=== PATIENT | female | born 1960 | race Caucasian/White ===

== ENCOUNTER 2016-06-02 | Outpatient (CLI) | payer OTHER | END 2016-06-02 12:01 | disposition home or self-care (01) ==

== ENCOUNTER 2016-08-25 14:24 | Outpatient (CLI) | payer OTHER | END 2016-08-25 14:25 | disposition home or self-care (01) | DX: Z12.31 Encounter for screening mammogram for malignant neoplasm of breast (principal); Z80.3 Family history of malignant neoplasm of breast ==

== ENCOUNTER 2017-08-21 15:07 | Outpatient (CLI) | payer OTHER ==
--- NOTE | 2017-08-22 10:30 | Mammography Report ---
DIGITAL SCREENING MAMMOGRAM: 08/21/2017 CLINICAL INDICATION: A 57-year-old with a family history of breast cancer, history of benign biopsy for screening. COMPARISON: 08/2016, 08/2015, 08/2014, 08/2013, 08/2012, 06/2011, 06/2010, 06/2009. TECHNIQUE: Routine CC and MLO projections were obtained of the breasts as well as bilateral laterally exaggerated craniocaudal views. FINDINGS: The breasts demonstrate heterogeneously dense fibroglandular parenchyma bilaterally. Coarse, typically benign calcifications are present. Postbiopsy changes in the left upper outer posterior breast are stable. No suspicious masses, clustered microcalcifications, or regions of architectural distortion are identified. IMPRESSION: BENIGN FINDINGS. RECOMMENDATION: Routine annual screening unless otherwise clinically indicated. BIRADS CATEGORY 2 - BENIGN FINDINGS. STANDARD QUALIFYING STATEMENTS: 1. This examination was reviewed with the aid of Computer-Aided Detection (CAD). 2. A negative or benign imaging report should not delay biopsy if clinically suspicious findings are present. Consider surgical consultation if warranted. More than 5% of cancers are not identified by imaging. 3. Dense breasts may obscure an underlying neoplasm. TD: 08/22/2017 10:28
== END 2017-08-21 15:08 | disposition home or self-care (01) ==
LOC: DI 15:07
PROVIDERS: ATTEND Physician Assistant
DX: Z12.31 Encounter for screening mammogram for malignant neoplasm of breast (principal); Z80.3 Family history of malignant neoplasm of breast
CPT/HCPCS: 77067

== ENCOUNTER 2018-01-03 12:01 | Outpatient (CLI) | payer OTHER ==
--- NOTE | 2018-01-03 14:53 | XRAY Report ---
Procedure Date: 01/03/2018 Accession Number: [id number] / [id number] Procedure: XR - Ankle 3 View RT CPT Code: FULL RESULT: EXAM: RIGHT ANKLE RADIOGRAPHY EXAM DATE: 01/03/2018 12:30 PM. CLINICAL HISTORY: RIGHT ANKLE INSTABILITY. COMPARISON: None. TECHNIQUE: 3 views. FINDINGS: Bones: Prominent osteophyte-like projection from the tip of the lateral malleolus. No fractures or bone lesions. Joints: No effusion. No subluxations. The ankle mortise is normally aligned. Soft Tissues: Minimal lateral soft tissue swelling. IMPRESSION: Prominent osteophyte projection arising from the tip of the lateral malleolus associated with mild soft tissue swelling. Otherwise negative right radiography. RADIA
== END 2018-01-03 12:02 | disposition home or self-care (01) ==
LOC: DI 12:01
PROVIDERS: ATTEND Nurse Practitioner Family
DX: M25.571 Pain in right ankle and joints of right foot (principal); M25.371 Other instability, right ankle; M25.771 Osteophyte, right ankle

== ENCOUNTER 2018-04-16 14:00 | Emergency (ER) | payer OTHER ==
[2018-04-16] MEDS ORDERED: SODIUM CHLORIDE 0.9% 1,000 ML IV ONE (14:33)
[2018-04-16] MEDS ORDERED: KETOROLAC 15 MG/ML VIAL IVP STA (14:33)
[2018-04-16 14:54] LABS: BILIRUBIN,URINE NEGATIVE (NEGATIVE); GLUCOSE, URINE (UA) NEGATIVE (NEGATIVE); KETONES,URINE (UA) TRACE mg/dL (NEGATIVE); LEUKOCYTE ESTERASE, URINE SMALL (NEGATIVE); NITRITE,URINE NEGATIVE (NEGATIVE); OCCULT BLOOD,URINE NEGATIVE (NEGATIVE); PROTEIN,URINE NEGATIVE (NEGATIVE); UROBILINOGEN,URINE 0.2 (NORMAL) E.U./dL (NORMAL)
[2018-04-16 14:55] LABS: CLARITY,URINE HAZY (CLEAR)
[2018-04-16 15:08] LABS: RBC,URINE 0-5 /HPF (0-5)
[2018-04-16 15:09] LABS: AMORPHOUS SEDIMENT,UR Few /LPF; BACTERIA,URINE Few /HPF (None Seen); SQUAMOUS EPITHELIAL CELL,UR FEW Squamous (<= Few)
[2018-04-16 15:14] LABS: BASOPHILS % (AUTO) 0.2 %; EOSINOPHILS # (AUTO) 0.5 10^3/uL (0.0-0.7); EOSINOPHILS % (AUTO) 10.3 %; HGB - HEMOGLOBIN 13.2 g/dL (12.0-16.0); LYMPHOCYTES # (AUTO) 0.2 10^3/uL (1.5-3.5); LYMPHOCYTES % (AUTO) 4.1 %; MEAN CORPUSCULAR HEMOGLOBIN 30.4 pg (27.0-31.0); MEAN CORPUSCULAR HGB CONC 34.2 g/dL (32.0-36.0); MEAN PLATELET VOLUME 9.8 fL (7.9-10.8); MONOCYTES # (AUTO) 0.4 10^3/uL (0.0-1.0); MONOCYTES % (AUTO) 8.3 %; NEUTROPHILS # (AUTO) 3.8 10^3/uL (1.5-6.6); NEUTROPHILS % (AUTO) 77.1 %; PLT - PLATELET COUNT 130 10^3/uL (130-450); RED BLOOD COUNT 4.35 10^6/uL (4.20-5.40); RED CELL DISTRIBUTION WIDTH 13.2 % (12.0-15.0)
[2018-04-16 15:26] LABS: ALBUMIN 3.9 g/dL (3.2-5.5); ALBUMIN/GLOBULIN RATIO 1.3 (1.0-2.2); BILIRUBIN,TOTAL 0.6 mg/dL (0.2-1.0); CALCIUM 8.5 mg/dL (8.5-10.3); CREATININE 0.7 mg/dL (0.4-1.0); TOTAL PROTEIN 6.9 g/dL (6.7-8.2)
[2018-04-16] MEDS ORDERED: cefTRIAXone 1 GM in SODIUM CHLORIDE 0.9% MINIBAG 100 ML IV STA (16:21)
--- NOTE | 2018-04-16 16:58 | ED Physician Documentation ---
History of Present Illness - Stated complaint Stated Complaint: CHILLS/LOW BACK PX - Chief complaint Chief Complaint: General - Additonal information Additional information: 58-year-old female presents the emergency department for evaluation of chills which started last night and ongoing dysuria with pain through her lower back. The patient's symptoms started yesterday evening and have continued. The patient was recently started on Macrobid for urinary tract infection. The patient has had ongoing dysuria. No reports of fever, focal abdominal pain, flank pain or relieving factors. Symptoms are described as moderate. No other associated symptoms. Review of Systems Constitutional: reports: Chills, Myalgias, Fatigue. denies: Fever Eyes: denies: Discharge Ears: denies: Ear pain Nose: denies: Congestion Throat: denies: Sore throat Cardiac: denies: Chest pain / pressure Respiratory: denies: Cough GI: denies: Abdominal Pain : reports: Dysuria. 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 : None HEENT: None Psych: Anxiety Musculoskeletal: None Derm: None - Past Surgical History /GAS METER REPAIRER: Dilation and currettage HEENT: Tonsil/Adenoidectomy - Present Medications Home Medications: Ambulatory Orders Medication Instructions Recorded Confirmed Cephalexin [Keflex] 500 mg PO BID #14 capsule 04/16/18 - Allergies Allergies/Adverse Reactions: Allergies Allergy/AdvReac Type Severity Reaction Status Date / Time No Known Drug Allergies Allergy Verified 04/16/18 14:10 - Social History Does the pt smoke?: No Smoking Status: Never smoker Does the pt drink ETOH?: Yes ETOH Use: Wine, Beer, Liquor Does the pt have substance abuse?: No - Immunizations Immunizations are current?: Yes - POLST Patient has POLST: No PD ED PE NORMAL - General General: Alert and oriented X 3, No acute distress - HEENT HEENT: Atraumatic, PERRL, EOMI, Ears normal - Neck Neck: Supple, no meningeal sign - Cardiac Cardiac: RRR, Strong equal pulses - Respiratory Respiratory: No respiratory distress, Clear bilaterally - Abdomen Abdomen: Soft, Non tender, Non distended - Back Back: No CVA TTP - Derm Derm: Normal color - Extremities Extremities: No deformity, Normal ROM s pain, No edema - Neuro Neuro: Alert and oriented X 3, Normal speech - Psych Psych: Normal mood Results - Vitals Vitals: Vital Signs - 24 hr 04/16/18 14:07 Temperature 36.7 C Heart Rate 97 Respiratory 16 Rate Blood Pressure 133/67 H O2 Saturation 100 - Labs Labs: Laboratory Tests 04/16/18 04/16/18 04/16/18 14:32 15:02 15:02 WBC 5.0 RBC 4.35 Hgb 13.2 Hct 38.7 MCV 89.0 MCH 30.4 MCHC 34.2 RDW 13.2 Plt Count 130 MPV 9.8 Neut # (Auto) 3.8 Lymph # (Auto) 0.2 L [place] # (Auto) 0.4 Eos # (Auto) 0.5 Baso # (Auto) 0.0 Absolute Nucleated RBC 0.00 Nucleated RBC % 0.0 Sodium Potassium Chloride Carbon Dioxide Anion Gap BUN Creatinine Estimated GFR (MDRD) Glucose Lactic Acid 1.5 Calcium Total Bilirubin AST ALT Alkaline Phosphatase Total Protein Albumin Globulin Albumin/Globulin Ratio Lipase Urine Color YELLOW Urine Clarity HAZY Urine pH 6.0 Ur Specific [place] >=1.030 H Urine Protein NEGATIVE Urine Glucose (UA) NEGATIVE Urine Ketones TRACE Urine Occult Blood NEGATIVE Urine Nitrite NEGATIVE Urine Bilirubin NEGATIVE Urine Urobilinogen 0.2 (NORMAL) Ur Leukocyte Esterase SMALL H Urine RBC 0-5 Urine WBC 4-5 Ur Squamous Epith Cells FEW Squamous Amorphous Sediment Few Urine Bacteria Few Ur Microscopic Review INDICATED Urine Culture Comments INDICATED 04/16/18 15:02 WBC RBC Hgb Hct MCV MCH MCHC RDW Plt Count MPV Neut # (Auto) Lymph # (Auto) [place] # (Auto) Eos # (Auto) Baso # (Auto) Absolute Nucleated RBC Nucleated RBC % Sodium 134 L Potassium 3.5 Chloride 104 Carbon Dioxide 23 Anion Gap 7.0 BUN 17 Creatinine 0.7 Estimated GFR (MDRD) 86 L Glucose 127 H Lactic Acid Calcium 8.5 Total Bilirubin 0.6 AST 31 ALT 24 Alkaline Phosphatase 76 Total Protein 6.9 Albumin 3.9 Globulin 3.0 Albumin/Globulin Ratio 1.3 Lipase 29 Urine Color Urine Clarity Urine pH Ur Specific [place] Urine Protein Urine Glucose (UA) Urine Ketones Urine Occult Blood Urine Nitrite Urine Bilirubin Urine Urobilinogen Ur Leukocyte Esterase Urine RBC Urine WBC Ur Squamous Epith Cells Amorphous Sediment Urine Bacteria Ur Microscopic Review Urine Culture Comments PD MEDICAL DECISION MAKING - ED course ED course: The patient's symptoms most likely are secondary to a urinary tract infection which did not respond to Macrobid. The patient has no clinical evidence of pyelonephritis at this time and there is no evidence of sepsis. Presently, the patient appears appropriate for discharge and ongoing outpatient management. The patient had much improvement in the emergency department. The patient's antibiotics will be changed to Keflex. A culture will be sent. I discussed warning signs and recommended returning to the emergency department for any worsening or any concerns. Departure - Departure Disposition: Home, Self Care Clinical Impression: Chills (without fever) Acute cystitis Qualifiers: Hematuria presence: without hematuria Qualified Code(s): N30.00 - Acute cystitis without hematuria Condition: Good Instructions: ED UTI Cystitis Female Follow-Up: Dawn Flower PA [Primary Care Provider] - Within 1 week Prescriptions: Cephalexin [Keflex] 500 mg PO BID #14 capsule Comments: Please return to the emergency department for worsening symptoms or any concerns.
[2018-04-16 17:37] VITALS: BP 111/69
== END 2018-04-16 17:41 | disposition home or self-care (01) ==
LOC: ED 14:00
DX: N30.00 Acute cystitis without hematuria (principal); R68.83 Chills (without fever)
CPT/HCPCS: 36415; 80053; 81001; 81003; 83605; 83690; 85025; 87040; 87086; 96361; 96365; 96375; 99283

== ENCOUNTER 2018-09-19 16:27 | Outpatient (CLI) | payer OTHER ==
--- NOTE | 2018-09-20 09:04 | Mammography Report ---
Reason: SCREENING MAMMO Procedure Date: 09/19/2018 Accession Number: [id number] / [id number] Procedure: ROLY - Screening Mammo w/Shaun CPT Code: FULL RESULT: EXAM: Screening Mammo w/Shaun DATE: 09/19/2018 5:12 PM CLINICAL HISTORY: Screening encounter. Family history of breast cancer in the mother at the age of 75 or 76. History of left breast core biopsy in 2007, negative pathology. TECHNIQUE: (B) - Bilateral CC and MLO views were obtained. COMPARISON: 08/21/2017 through 09/04/2014. PARENCHYMAL PATTERN: (D) - The breast(s) demonstrate(s) heterogeneously dense fibroglandular parenchyma. FINDINGS: A biopsy clip is seen in the left breast. There are coarse typically benign calcifications. There are no suspicious masses, calcifications, or areas of distortion. IMPRESSION: Benign findings. BI-RADS category 2. RECOMMENDATION: (ANNUAL) - Recommend routine annual screening mammography. BI-RADS CATEGORY: (2) - Benign Findings. STANDARD QUALIFYING STATEMENTS: 1. This examination was not reviewed with the aid of Computer-Aided Detection (CAD). 2. A negative or benign imaging report should not preclude biopsy if clinically suspicious findings are present. 3. Dense breasts may obscure an underlying neoplasm. 4. This examination was reviewed with the aid of 3D breast imaging (tomosynthesis).
== END 2018-09-19 16:28 | disposition home or self-care (01) ==
LOC: DI 16:27
PROVIDERS: ATTEND Physician Assistant
DX: Z12.31 Encounter for screening mammogram for malignant neoplasm of breast (principal); Z80.3 Family history of malignant neoplasm of breast
CPT/HCPCS: 77063; 77067

== ENCOUNTER 2019-06-11 16:10 | Outpatient (CLI) | payer OTHER ==
--- NOTE | 2019-06-13 16:29 | XRAY Report ---
Reason: LOW BACK PAIN Procedure Date: 06/11/2019 Accession Number: [id number] / [id number] Procedure: XR - Lumbar Spine Complete CPT Code: Final Report FULL RESULT: EXAM: LUMBOSACRAL SPINE RADIOGRAPHY EXAM DATE: 06/11/2019 04:29 PM. CLINICAL HISTORY: Low back pain. COMPARISONS: None. TECHNIQUE: 5 views. FINDINGS: Alignment: There are apparent 5 degrees of thoracolumbar dextroscoliosis centered about T12, possibly due to partial loss of height of T12, not well-seen on lateral radiograph due to technique. Bones: Five upn-bss-peepmpy lumbar vertebral bodies are present. No fractures or bone lesions as visualized, limited at the lower thoracic spine as described above. Disks: Normal. Disk heights are maintained. Facets: There are advanced facet degenerative changes at L5. Sacroiliac Joints: Unremarkable. Soft Tissues: Normal. The visualized bowel gas pattern is normal. IMPRESSION: Question abnormality of the T12 vertebral body with scoliosis. There is focal tenderness in this region, recommend additional imaging by cross-sectional modality, CT versus MRI. Advanced facet arthropathy at L5. RADIA
== END 2019-06-11 16:11 | disposition home or self-care (01) ==
LOC: DI 16:10
PROVIDERS: ATTEND Physician Assistant
DX: M47.816 Spondylosis without myelopathy or radiculopathy, lumbar region (principal)
CPT/HCPCS: 72110

== ENCOUNTER 2020-01-02 13:03 | Outpatient (CLI) | payer OTHER ==
--- NOTE | 2020-01-03 08:09 | Mammography Report ---
BILATERAL DIGITAL SCREENING MAMMOGRAM 3D/2D: 01/02/2020 CLINICAL: Routine screening. Comparison is made to exams dated: 09/19/2018 mammogram, 08/21/2017 mammogram, 08/25/2016 mammogram, 09/01 mammogram, 09/04/2014 mammogram, and 08/27/2013 mammogram - [facility]. The ti ssue of both breasts is heterogeneously dense. This may lower the sensitivity of mammography. There is a biopsy clip in the left breast. No significant masses, calcifications, or other findings are seen in either breast. There has been no significant interval change. IMPRESSION: NEGATIVE There is no mammographic evidence of malignancy. A 1 year screening mammogram is recommended. This exam was interpreted at Station ID: [id number]. NOTE: For mammograms, a report in lay terms will be sent to the patient. Approximately 15% of breast malignancies will not be visualized mammographically. In the management of a palpable breast mass, a negative mammogram must not discourage biopsy of a clinically suspicious lesion. Electronically Signed By: Young charles/сергей:01/02/2020 16:35:53 ACR BI-RADS Category 1: Negative 3341F PARENCHYMAL PATTERN: (D) - The breast(s) demonstrate(s) heterogeneously dense fibroglandular chandana mccloud. BI-RADS CATEGORY: (1) - 1 RECOMMENDATION: (ANNUAL) - Recommend routine annual screening mammography. 20210102 1 year screening LATERALITY: (B)
== END 2020-01-02 13:04 | disposition home or self-care (01) ==
LOC: DI 13:03
PROVIDERS: ATTEND Registered Nurse
DX: Z12.31 Encounter for screening mammogram for malignant neoplasm of breast (principal)
CPT/HCPCS: 77063; 77067

== ENCOUNTER 2020-12-14 08:55 | Outpatient (CLI) | payer OTHER ==
--- NOTE | 2020-12-14 14:22 | Mammography Report ---
BILATERAL DIGITAL SCREENING MAMMOGRAM 3D/2D: 12/14/2020 CLINICAL: Routine screening. Comparison is made to exams dated: 01/02/2020 mammogram, 09/19/2018 mammogram, 08/21/2017 mammogram, 08/25 mammogram, 09/02/2015 mammogram, and 09/04/2014 mammogram - [facility]. The ti ssue of both breasts is heterogeneously dense. This may lower the sensitivity of mammography. There is a biopsy clip in the left breast. No significant masses, calcifications, or other findings are seen in either breast. There has been no significant interval change. IMPRESSION: NEGATIVE There is no mammographic evidence of malignancy. A 1 year screening mammogram is recommended. This exam was interpreted at Station ID: [id number]. NOTE: For mammograms, a report in lay terms will be sent to the patient. Approximately 15% of breast malignancies will not be visualized mammographically. In the management of a palpable breast mass, a negative mammogram must not discourage biopsy of a clinically suspicious lesion. Electronically Signed By: Young charles/сергей:12/14/2020 09:40:11 ACR BI-RADS Category 1: Negative 3341F PARENCHYMAL PATTERN: (D) - The breast(s) demonstrate(s) heterogeneously dense fibroglandular chandana mccloud. BI-RADS CATEGORY: (1) - 1 RECOMMENDATION: (ANNUAL) - Recommend routine annual screening mammography. 20211215 1 year screening LATERALITY: (B)
== END 2020-12-14 08:56 | disposition home or self-care (01) ==
LOC: DI 08:55
DX: Z12.31 Encounter for screening mammogram for malignant neoplasm of breast (principal)

== ENCOUNTER 2021-08-05 15:42 | Outpatient (CLI) | payer OTHER ==
[2021-08-05 16:41] VITALS: BP 155/95
--- NOTE | 2021-08-05 16:41 | SLEEP CARE CONSULTATION ---
Information from patient questionnaire entered by Blane Melgar MA. I have reviewed and concur with the information entered by Blane Melgar MA. This document represents the service I personally performed and the decisions made by , Geri Pace ARNP. History of Present Illness Service Date and Time: 08/05/2021 1542 Reason for Visit: New patient (ONSET [address], ON CPAP), Previously diagnosed sleep apnea, sleep apnea on CPAP therapy Chief Complaint: reports: Insomnia, Unrefreshed sleep, Snoring, Observed pauses in breathing, Fatigue Date of Onset: 20 YEARS Usual bedtime: 930-1030 PM Time it takes to fall asleep: 10 - 20 MINUTES Snores at night: Yes Observed to quit breathing while asleep: Yes Sleeps alone due to snoring: No Number of times waking at night: 1-2 Reasons for waking at night: reports: Snoring, Gasping for air, Bathroom Toss, Turn, or Twitch while sleeping: Yes Recalls having dreams: Yes Usually gets out of bed at: 0700 Feels refreshed in the morning: No Morning headache: Yes Sleepy or fatigued during the day: Yes Ever fallen asleep while driving: No Takes day naps: No Dreams during day naps: No Prior sleep studies: Yes Year and Where: 2016 [facility] Type of Sleep Study: Home sleep study Additional HPI information: PEPE NICOLE was previously diagnosed to have mild, AHI 5.5, obstructive sleep apnea-hypopnea syndrome and comes in today to establish care for CPAP therapy. - Parasomnia Symptoms Ever been unable to move upon waking from sleep: Yes Walks in sleep: No Talks in sleep: Yes Ever acted out dreams in sleep: No Ever felt weak in the knees when startled or emotional: No Bothered by creepy, crawly, restless sensations in legs: No Problems with memory or concentration: Yes CPAP Compliance Data Compliance data discussion: Patient has not been using a CPAP since 2019. She stopped using it around the time Covid started. She was having problems with sinuses and allergies when using her CPAP. She also had insurance issues and was not able to afford supplies. She then heard about the recall and has not continued using her CPAP since. She has received a new Dreamstation 2 but has not even unpacked to try using it. She has used a AirFit N30i mask in the past. She last received supplies through [employer]. Her insurance status is changing in October. Subjective Missed days of use due to: reports: illness, other (recall) Patient concerns: reports: nasal congestion. denies: aerophagia, mask discomfort, air blowing in eyes, mask leak noise, condensation in mask/hose, dry mouth, nose, throat, epistaxis Observed to snore while using device: No Current pressure setting perceived as: comfortable On therapy, patient: reports: other (not sure how much benefit she received due to issues). denies: drowsiness while driving Initial [place] Sleepiness Scale score: 10 (07/2021) Past Medical History Past Medical History: reports: Claustrophobia, Arthritis, Arrythmia (menopause related? - racing heart), Anxiety, Depression Social History The patient's occupation is a [employer]. Patient is and lives in [place]. Have you smoked in the past 12 months: No Cigarettes per day (20/pack): 22 Years of smokin Quit date: 40 YEARS Smoking Pack Years: 4.4 Alcohol use: Yes Alcohol amount and frequency: 1 X DAILY, varies Caffeine use: Yes Caffeine amount and frequency: 2 X DAILY Family History Family history of sleep disordered breathing: Yes Family Hx Sleep Apnea: Mother: Snoring, Father: Snoring, Sibling: Snoring Allergies and Home Medications Known drug allergies: No Drug allergies reviewed: Yes Home medication list reviewed: Yes Allergy and home medication list: Allergies No Known Drug Allergies Allergy (Verified 04/16/18 14:10) Medications: Atorvastatin Estradiol Cequa, eye drop Alclometasone dipropionate ointment, prn Sumatriptan, prn Advil, prn Claritan, prn Dramamine, prn Airborne Milk Thistle Camilo L-Glutamine L-Tyrosine Ashwaganda Calcium Vitamin D3 Review of Systems Cardiovascular: reports: other (low blood pressure) Respiratory: reports: shortness of breath Neurological: reports: headaches Psychiatric: reports: anxiety, depression Ear/Nose/Throat: reports: tonsillectomy, wisdom teeth removed Endocrine: reports: sluggishness, too hot or cold Musculoskeletal: reports: joint pain, neck pain, back pain, joint swelling, muscle pain or cramping, mobility problems Immunologic: reports: sneezing, rash, itching, allergies to food or environment (pollens (trees and grass), Chemical scents, Mold/mildew) Physical Exam Vital signs obtained and entered by: FIDE BURCIAGA Blood Pressure: 155/95 (LEFT, PULSE 67, RESP 14, ) Cuff size: wrist Heart Rate: 67 O2 Saturation: 98 (PAPER) Height: 5 ft 6 in Weight: 165 lb (CLOTHES) Body Mass Index: 26.6 BMI Classification: Overweight Neck circumference: 13 (INCHES) Heart: regular rate and rhythm Lungs: clear bilaterally Impression and Plan 1. Suspected Obstructive Sleep Apnea-Hypopnea Syndrome, as previously diagnosed and as suggested by a history of irregular snoring, observed cessation of breath while asleep, morning headache, frequent awakening during the night, unrefreshed sleep, and cognitive impairment. I recommend proceeding to polysomnography to confirm the diagnosis and to assess severity. If the patient has significant sleep disordered breathing, a manual CPAP titration study will also be performed to find the optimal treatment pressure. I informed the patient of what the sleep studies involve and after some discussion, obtained agreement to proceed. The pathophysiology of obstructive sleep apnea-hypopnea syndrome was discussed with the patient and health risks of cardiovascular and cerebrovascular disease if not treated. Risks of drowsy driving discussed in detail and patient advised to avoid long distance driving and to order puller at the first sign of drowsiness. Patient agreed to plan. * Schedule polysomnography +- manual CPAP titration study and return in 1-2 weeks after the study to discuss results. * Avoid long distance driving or driving when feeling sleepy. * Avoid alcohol, sedative and muscle relaxant around bedtime. * Attempt to lose weight. * Review instructions provided by trained office staff on how to prepare for the sleep study. * Return for follow-up after sleep study completed. Counseling Topics: Weight control Visit Type: In Office Time Spent with Patient (minutes): 32 Provider Statement: I spent 100% of the Face to Face Visit with the patient with greater than 50% spent counseling the patient and coordination of care.
== END 2021-08-05 15:43 | disposition home or self-care (01) ==
LOC: SC 15:42
PROVIDERS: ATTEND Nurse Practitioner Family
DX: G47.33 Obstructive sleep apnea (adult) (pediatric) (principal); E66.3 Overweight; Z68.26 Body mass index [BMI] 26.0-26.9, adult; Z87.891 Personal history of nicotine dependence
CPT/HCPCS: 99203; 99212

== ENCOUNTER 2021-08-17 15:02 | Outpatient (CLI) | payer OTHER | END 2021-08-17 15:03 | disposition home or self-care (01) | LOC: SC 15:02 | PROVIDERS: ATTEND Nurse Practitioner Family | DX: G47.33 Obstructive sleep apnea (adult) (pediatric) (principal) | CPT/HCPCS: 95806 ==

== ENCOUNTER 2021-09-03 10:37 | Outpatient (CLI) | payer OTHER ==
[2021-09-03 11:26] VITALS: BP 126/71
--- NOTE | 2021-09-03 11:26 | SLEEP CARE CONSULTATION ---
Information from patient questionnaire entered by Blane Melgar MA. I have reviewed and concur with the information entered by Blane Melgar MA. This document represents the service I personally performed and the decisions made by , Geri Pace ARNP. History of Present Illness Service Date and Time: 09/03/2021 1037 Initial [place] Sleepiness Scale score: 10 (07/2021) Current [place] Sleepiness Scale score: 10 (08/2021) Additional HPI information: PEPE NICOLE returns for follow up and results of the recently performed home sleep study. I explained the pathophysiology behind obstructive sleep apnea. We then spent quite a bit of time discussing different treatment options. For mild obstructive sleep apnea, surgery and oral appliance are alternatives to nasal CPAP therapy but in moderate or severe cases, nasal CPAP is the most effective and reliable treatment. Because apnea is primarily in supine position, then positional management therapy could be effective. Methods discussed such as positioning with pillows, using a T-shirt with tennis balls in the back, and shown commercial products that have a pillow format on back to prevent supine sleep. I reviewed the impact of weight changes on sleep apnea and strongly recommended losing weight. Patient counseled not drink alcohol less than 4 hours before bedtime as it can increase snoring and apnea. Patient was cautioned about risks of drowsy driving until sleepiness symptoms resolve. Patient denies drowsy driving. Sleep Study - Results Type of Sleep Study: Home sleep study (F/U HOME STUDY, 08/17/2021 [facility] Prior sleep studies: Yes Year and Where: 2016 [facility] Polysomnography/Home Sleep Study results: Physician Impression: The quality of the study is good. The length of the study is adequate (> 240 minutes). Please also see the tabulated and graphic data. 1. Obstructive Sleep Apnea-Hypopnea (ICD-10 G47.33), mild, with an AHI of 6.4/hr and rudolph SaO2 of 91%. During the study, the patient had 33 apneas (33 obstructive, 0 central, 0 mixed) and 16 hypopneas. The longest episode lasted 132.5 seconds. The respiratory events occurred almost exclusively during supine sleep (supine AHI was 13.1 and non-supine, 2.83). Allergies and Home Medications Known drug allergies: Yes (SCENTS) Drug allergies reviewed: Yes Home medication list reviewed: Yes (Meloxicam for arthritis) Allergy and home medication list: Allergies No Known Drug Allergies Allergy (Verified 04/16/18 14:10) Review of Systems Review of systems same as previous: Yes (no changes) Physical Exam Vital signs obtained and entered by: FIDE BURCIAGA Blood Pressure: 126/71 (RESP 16, PULSE 70, LEFT) Cuff size: wrist Heart Rate: 62 O2 Saturation: 97 (CLOTH) Height: 5 ft 6 in Weight: 168 lb Body Mass Index: 27.1 BMI Classification: Overweight Impression and Plan 1. Obstructive Sleep Apnea-Hypopnea Syndrome, mild, with lowest oxygen saturation of 91%. Obviously this is the cause of the patients symptoms of unrefreshed sleep, and excessive daytime sleepiness. Positive pressure therapy could benefit anxiety and depression. Patient has used a CPAP in the past and does have a new Dreamstation 2 ready to use at home. Since patients apnea is primarily in supine position, patient advised to try positional therapy and she agreed with plan. She is also advised to lose weight as this will reduce snoring and apnea. An oral appliance can also be used for snoring but often is not covered by insurance. Follow up is scheduled for one month to check effectiveness of positional therapy. * Positional therapy * Attempt to lose weight. * Avoid alcohol consumption near bedtime. * Avoid supine sleep * The patient is again cautioned about driving until sleepiness completely resolves. * Return in one to two months. I will assess response to therapy. Counseling Topics: Sleeping position, Weight loss health impact Visit Type: In Office Time Spent with Patient (minutes): 20 Provider Statement: I spent 100% of the Face to Face Visit with the patient with greater than 50% spent counseling the patient and coordination of care.
== END 2021-09-03 10:38 | disposition home or self-care (01) ==
LOC: SC 10:37
PROVIDERS: ATTEND Nurse Practitioner Family
DX: G47.33 Obstructive sleep apnea (adult) (pediatric) (principal); E66.3 Overweight; Z68.27 Body mass index [BMI] 27.0-27.9, adult
CPT/HCPCS: 99212; 99213

== ENCOUNTER 2021-12-13 08:56 | Outpatient (CLI) | payer OTHER ==
--- NOTE | 2021-12-14 09:12 | Mammography Report ---
BILATERAL DIGITAL SCREENING MAMMOGRAM 3D/2D: 12/13/2021 CLINICAL: Routine screening. Family history of breast cancer. Comparison is made to exams dated: 12/14/2020 mammogram, 01/02/2020 mammogram, 09/19/2018 mammogram, and 08/21/2017 mammogram - [facility]. The tissue of both breasts is heterogeneously den se. This may lower the sensitivity of mammography. There is a biopsy clip in the left breast. No significant masses, calcifications, or other findings are seen in either breast. There has been no significant interval change. IMPRESSION: NEGATIVE There is no mammographic evidence of malignancy. A 1 year screening mammogram is recommended. This exam was interpreted at Station ID: [id number]. NOTE: For mammograms, a report in lay terms will be sent to the patient. Approximately 15% of breast malignancies will not be visualized mammographically. In the management of a palpable breast mass, a negative mammogram must not discourage biopsy of a clinically suspicious lesion. Electronically Signed By: Domingo bravo/сергей:12/13/2021 12:24:46 ACR BI-RADS Category 1: Negative 3341F PARENCHYMAL PATTERN: (D) - The breast(s) demonstrate(s) heterogeneously dense fibroglandular chandana mccloud. BI-RADS CATEGORY: (1) - 1 RECOMMENDATION: (ANNUAL) - Recommend routine annual screening mammography. [id number] 1 year screening LATERALITY: (B)
== END 2021-12-13 08:57 | disposition home or self-care (01) ==
LOC: DI.S 08:56
PROVIDERS: ATTEND Physician Assistant
DX: Z12.31 Encounter for screening mammogram for malignant neoplasm of breast (principal); Z80.3 Family history of malignant neoplasm of breast

== ENCOUNTER 2022-03-21 06:23 | Day surgery (SDC) | payer OTHER ==
--- NOTE | 2022-03-21 06:59 | ANESTHESIA ---
Pre-Anesthesia VS, & Labs - Diagnosis screening - Procedure colonoscopy Vital Signs: Temp Pulse Resp BP Pulse Ox O2 Flow Rate 36.7 C 66 16 153/77 H 100 0 03/21/22 06:35 03/21/22 06:35 03/21/22 06:35 03/21/22 06:35 03/21/22 06:35 03/21/22 06:35 Height: 5 ft 6 in Weight (kg): 72 kg Body Mass Index: 25.6 BMI Classification: Overweight - NPO >8 hours Last Fluid Intake: am prep - Is Patient ?: No - Lab Results Lab results reviewed: Yes Home Medications and Allergies Home Medications: Ambulatory Orders Albuterol Sulf [Ventolin Hfa Inhaler] 1 inh INH PRN PRN 03/18/22 Alclometasone Dipropionate 15 gm TP DAILY 03/18/22 Atorvastatin [Lipitor] 2 tab PO DAILY 03/18/22 Estradiol [Estrace] 1 applic TOP DAILY 03/18/22 Meloxicam [Mobic] 1 tab PO DAILY 03/18/22 Sumatriptan Succinate [Imitrex] 1 tab PO DAILY 03/18/22 cycloSPORINE [Cequa] 1 drops EACHEYE DAILY 03/18/22 Albuterol Sulf [Ventolin Hfa Inhaler] 1 inh INH PRN PRN 03/18/22 Alclometasone Dipropionate 15 gm TP DAILY 03/18/22 Atorvastatin [Lipitor] 2 tab PO DAILY 03/18/22 Estradiol [Estrace] 1 applic TOP DAILY 03/18/22 Meloxicam [Mobic] 1 tab PO DAILY 03/18/22 Sumatriptan Succinate [Imitrex] 1 tab PO DAILY 03/18/22 cycloSPORINE [Cequa] 1 drops EACHEYE DAILY 03/18/22 Allergies/Adverse Reactions: Allergies Allergy/AdvReac Type Severity Reaction Status Date / Time No Known Drug Allergies Allergy Verified 03/21/22 06:45 Anes History & Medical History - Anesthetic History Anesthesia Complications: reports: No previous complications Family history of Anesthesia Complications: Denies Family history of Malignant Hyperthermia: Denies - Medical History Cardiovascular: reports: None, High cholesterol Pulmonary: reports: Asthma, Sleep apnea Gastrointestinal: reports: None Urinary: reports: None Neuro: reports: None Musculoskeletal: reports: Osteoarthritis Endocrine/Autoimmune: reports: None Skin: reports: None Smoking Status: Never smoker Psychosocial: reports: Alcohol, Cannabis History of Cancer?: No - Surgical History General: reports: Colonoscopy Eyes Ears Nose Throat (EENT): reports: Cataracts, Tonsil/Adenoidectomy Gynecologic: reports: Dilation and currettage Exam General: Alert, Oriented x3, Cooperative Dental: WNL Mouth Openin Fingerbreadth Neck Mobility: Normal Mallampati classification: II Thyromental Distance: 4-6 cm Respiratory: Lungs clear, Normal breath sounds, No respiratory distress Cardiovascular: Regular rate Mental/Cognitive Status: Alert/Oriented X3, Normal for patient Cognitive Status: Within normal limits Plan Anesthesia Type: Total IV Consent for Procedure(s) Verified and Reviewed: Yes Code Status: Attempt Resuscitation ASA classification: 2-Mild systemic disease Is this case an emergency?: No
[2022-03-21] MEDS ORDERED: LACTATED RINGERS 1,000 ML IV ONE ×2 (07:00→08:00)
[2022-03-21] MEDS ORDERED: MIDAZOLAM 2 MG/2 ML VIAL ONE (07:09)
[2022-03-21] MEDS ORDERED: PROPOFOL 500 MG/50 ML 500 MG/50 ML VIAL ONE (07:10)
[2022-03-21 08:28] VITALS: BP 123/82
--- NOTE | 2022-03-21 09:06 | ANESTHESIA POST OP EVALUATION ---
Anesthesia Post Eval - Post Anesthesia Eval Vitals: Last Vital Signs Temp 36.7 C 03/21/22 08:27 Pulse 56 L 03/21/22 08:27 Resp 13 03/21/22 08:27 BP 123/82 H 03/21/22 08:27 Pulse Ox 99 03/21/22 08:27 O2 Flow Rate 0 03/21/22 06:35 CV Function Including HR & BP: Stable Pain Control: Satisfactory Nausea & Vomiting: Negative Mental Status: Baseline Respiratory Status: Airway Patent Hydration Status: Satisfactory Anesthesia Complications: None
== END 2022-03-21 06:24 | disposition home or self-care (01) ==
LOC: SDS 06:23
PROVIDERS: ATTEND Surgery
PROC: 0DBN8ZZ Excision of Sigmoid Colon, Via Natural or Artificial Opening Endoscopic (ICD-10-PCS; 2022-03-21)
PROC: 0DBK8ZZ Excision of Ascending Colon, Via Natural or Artificial Opening Endoscopic (ICD-10-PCS; principal; 2022-03-21 07:30)
DX: Z12.11 Encounter for screening for malignant neoplasm of colon (principal); D12.2 Benign neoplasm of ascending colon; D12.5 Benign neoplasm of sigmoid colon; J45.909 Unspecified asthma, uncomplicated; G47.33 Obstructive sleep apnea (adult) (pediatric); I07.1 Rheumatic tricuspid insufficiency; Z87.891 Personal history of nicotine dependence
CPT/HCPCS: 45385; J7120

== ENCOUNTER 2022-05-18 13:04 | Outpatient (CLI) | payer OTHER ==
--- NOTE | 2022-05-18 17:00 | XRAY Report ---
PROCEDURE: Knee 3 View RT INDICATIONS: INSTABILITY OF JOINT OF RIGHT KNEE TECHNIQUE: 3 views of the right knee(s) were acquired. COMPARISON: None. FINDINGS: Bones: No fractures or dislocations. No suspicious bony lesions. There is moderate femorotibial com partment narrowing and small medial compartment and intercondylar osteophytes. Soft tissues: No joint effusion. No suspicious soft tissue calcifications. IMPRESSION: Mild knee osteoarthritis. Reviewed by: Marianne Gilmore MD on 05/18/2022 4:58 PM PST Approved by: Marianne Gilmore MD on 05/18/2022 4:58 PM PST Station ID: [id number]
== END 2022-05-18 13:05 | disposition home or self-care (01) ==
LOC: DI.S 13:04
PROVIDERS: ATTEND Physician Assistant
DX: M17.11 Unilateral primary osteoarthritis, right knee (principal)

== ENCOUNTER 2022-06-16 20:34 | Outpatient (CLI) | payer OTHER ==
--- NOTE | 2022-06-17 10:01 | Ultrasound Report ---
PROCEDURE: Pelvic w/Transvaginal INDICATIONS: POST MENOPAUSAL BLEEDING TECHNIQUE: Real-time scanning was performed of the pelvic organs, with image documentation. Additional endovagi nal scanning was necessary due to incomplete visualization of the adnexal and endometrial structures by transabdominal scanning. COMPARISON: None. FINDINGS: Uterus: Uterus is anteverted and unremarkable in size for age at 6.4 x 2.3 x 3.3 cm. The myometrium is homogeneous. The endometrium measures 4 mm in combined thickness. Ovaries: The right ovary measures 1.1 x 1.3 x 2.0 cm, with a calculated ovarian volume of 2 cc. The left ovary measures 1.7 x 1.0 x 1.2 cm, with a calculated ovarian volume of 1 cc. The ovaries have a unremarkable sonographic appearance. Less than 12 follicles can be seen in each ovary. No adnexal masses are seen. Other: No pathologic free abdominal or pelvic fluid. IMPRESSION: 1. Endometrium is thin, measuring 4 mm. Findings could represent endometrial atrophy. 2. No adnexal mass visualized. Reviewed by: Domingo Chaves MD on 06/17/2022 9:59 AM PST Approved by: Domingo Chaves MD on 06/17/2022 9:59 AM PST Station ID: [id number]
== END 2022-06-16 20:35 | disposition home or self-care (01) ==
LOC: DI 20:34
PROVIDERS: ATTEND Physician Assistant
DX: N95.0 Postmenopausal bleeding (principal)

== ENCOUNTER 2022-07-01 07:31 | Outpatient (CLI) | payer OTHER ==
--- NOTE | 2022-07-01 14:38 | MRI Report ---
PROCEDURE: KNEE WO - RT INDICATIONS: RIGHT KNEE PAIN TECHNIQUE: Noncontrast sagittal PD fast spin echo and T2 fast spin echo with fat saturation, sagittal 3-D gradie nt sequence with fat saturation; coronal T1 spin echo and PD fast spin echo with fat saturation, and axial PD fast spin echo with fat saturation through the knee. COMPARISON: None. FINDINGS: Image quality: Excellent. Menisci: The medial and lateral menisci demonstrate normal morphology and internal signal. The meni scal root ligaments appear intact. Cruciate ligaments: The anterior cruciate ligament is mildly thickened with intrasubstance T2 hyperi ntense signal near its tibial insertion. The posterior cruciate ligament is intact. Medial structures: The medial collateral ligament appears mildly thickened near its femoral insertio n. The posterior oblique ligament, semimembranosus tendon insertions, and oblique popliteal ligament , and meniscocapsular junction appear intact. Visualized portions of the pes anserinus tendons appea r normal. No abnormal bursal fluid. Lateral structures: The lateral collateral ligament, long and short heads of the biceps femoris tend on appear intact. The popliteus tendon appears normal; the popliteofibular ligament appears intact.. Iliotibial band appears normal. Anterior structures: The quadriceps and patellar tendons appear intact. Patellar alignment is kamran l. No femoral trochlear dysplasia or ventral trochlear prominence. No edema in the infrapatellar fa t pad. Bones and cartilage: Moderate tricompartmental osteoarthritis and low to moderate grade chondromalaci a is seen most notably involving patellofemoral compartment with significant joint space narrowing, s ubchondral sclerosis, subchondral edema and cyst formation. Small marginal osteophyte formation is al so seen. No acute fracture or dislocation. No significant patellar subluxation. Joint space: There is moderate knee joint fluid. No Maria's cyst. Normal appearing synovial plicae are incidentally noted. IMPRESSION: 1. 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 No fracture or dislocation. Moderate joint effusion, no gross lo ose bodies. 2. No evidence of focal meniscal tear. 3. Sprain/low-grade intrasubstance partial thickness tear involving anterior cruciate ligament. No AC L rupture. PCL is intact. 4. Low-grade proximal MCL sprain. Reviewed by: Marques Castro MD on 07/01/2022 2:36 PM PST Approved by: Marques Castro MD on 07/01/2022 2:36 PM PST Station ID: [id number]
== END 2022-07-01 07:32 | disposition home or self-care (01) ==
LOC: DI 07:31
PROVIDERS: ATTEND Physician Assistant
DX: M17.11 Unilateral primary osteoarthritis, right knee (principal); M22.41 Chondromalacia patellae, right knee; M25.461 Effusion, right knee; S83.511A Sprain of anterior cruciate ligament of right knee, initial encounter; S83.411A Sprain of medial collateral ligament of right knee, initial encounter

== ENCOUNTER 2022-07-18 08:23 | Outpatient (CLI) | payer OTHER ==
[2022-07-18 15:52] LABS: BASOPHILS % (AUTO) 0.7 %; EOSINOPHILS # (AUTO) 0.4 10^3/uL (0.0-0.7); EOSINOPHILS % (AUTO) 6.7 %; HCT - HEMATOCRIT 43.1 % (37.0-47.0); HGB - HEMOGLOBIN 13.8 g/dL (12.0-16.0); LYMPHOCYTES # (AUTO) 2.4 10^3/uL (1.5-3.5); MEAN CORPUSCULAR HEMOGLOBIN 30.7 pg (27.0-31.0); MEAN CORPUSCULAR VOLUME 95.8 fL (81.0-99.0); MEAN PLATELET VOLUME 12.6 fL (7.9-10.8); MONOCYTES # (AUTO) 0.6 10^3/uL (0.0-1.0); MONOCYTES % (AUTO) 10.7 %; NEUTROPHILS % (AUTO) 37.7 %; PLT - PLATELET COUNT 188 10^3/uL (130-450); RED CELL DISTRIBUTION WIDTH 13.5 % (12.0-15.0); WHITE BLOOD COUNT 5.3 x10^3/uL (4.8-10.8)
== END 2022-07-18 08:24 | disposition home or self-care (01) ==
LOC: LAB.S 08:23
PROVIDERS: ATTEND Obstetrics & Gynecology
DX: Z01.812 Encounter for preprocedural laboratory examination (principal); N95.0 Postmenopausal bleeding
CPT/HCPCS: 36415; 85025

== ENCOUNTER 2022-07-19 08:43 | Day surgery (SDC) | payer OTHER ==
[~2022-07-19 08:43] MED LIST: BUPIVACAINE 0.5% PF 30 ML VIAL ONE; LIDOCAINE MPF 2%-EPI 1:200000 20 ML VIAL ONE; SILVER NITRATE APPLICATOR TOP ONE
[2022-07-19] MEDS ORDERED: LACTATED RINGERS 1,000 ML IV ONE ×2 (08:44→10:21)
[2022-07-19] MEDS ORDERED: HYDROmorphone 0.5 MG/0.5 ML SYRINGE IVP PRN (09:04)
[2022-07-19] MEDS ORDERED: NALOXONE 0.4 MG/ML VIAL IVP PRN (09:04)
[2022-07-19] MEDS ORDERED: MORPHINE 2 MG/ML CARPUJECT IVP PRN (09:04)
[2022-07-19] MEDS ORDERED: METOCLOPRAMIDE 10 MG/2 ML VIAL IVP PRN (09:04)
[2022-07-19] MEDS ORDERED: ATROPINE ABBOJECT 1 MG/10 ML SYRINGE IVP PRN (09:04)
[2022-07-19] MEDS ORDERED: ONDANSETRON 4 MG/2 ML VIAL IVP PRN (09:04)
[2022-07-19] MEDS ORDERED: ePHEDrine 50 MG/ML VIAL IVP PRN (09:04)
[2022-07-19] MEDS ORDERED: fentaNYL 100 MCG/2 ML VIAL IVP PRN (09:04)
--- NOTE | 2022-07-19 09:06 | ANESTHESIA ---
Pre-Anesthesia VS, & Labs - Diagnosis post-menopausal bleeding - Procedure hysteroscopy, D&C Vital Signs: Temp Pulse Resp BP Pulse Ox O2 Flow Rate 36 C L 59 L 16 133/92 H 100 07/19/22 08:50 07/19/22 08:50 07/19/22 08:50 07/19/22 08:50 07/19/22 08:50 Height: 5 ft 6 in Weight (kg): 74 kg Body Mass Index: 26.3 BMI Classification: Overweight - NPO >8 hours - Is Patient ?: No Home Medications and Allergies Albuterol Sulf [Ventolin Hfa Inhaler] 1 inh INH PRN PRN 03/18/22 Alclometasone Dipropionate 15 gm TP DAILY 03/18/22 Atorvastatin [Lipitor] 40 mg PO DAILY 03/18/22 Estradiol [Estrace] 1 applic TOP DAILY 03/18/22 Sumatriptan Succinate [Imitrex] 1 tab PO DAILY 03/18/22 Allergies/Adverse Reactions: Allergies Allergy/AdvReac Type Severity Reaction Status Date / Time No Known Drug Allergies Allergy Verified 03/21/22 06:45 Anes History & Medical History - Anesthetic History Anesthesia Complications: reports: No previous complications Family history of Anesthesia Complications: Denies Family history of Malignant Hyperthermia: Denies - Medical History Cardiovascular: reports: None, High cholesterol Pulmonary: reports: Asthma, Sleep apnea Gastrointestinal: reports: None Urinary: reports: None Neuro: reports: None Musculoskeletal: reports: Osteoarthritis Endocrine/Autoimmune: reports: None Skin: reports: None Smoking Status: Never smoker Psychosocial: reports: Alcohol, Cannabis - Surgical History General: reports: Colonoscopy Eyes Ears Nose Throat (EENT): reports: Cataracts, Tonsil/Adenoidectomy Gynecologic: reports: Dilation and currettage Exam General: Alert, Oriented x3, Cooperative Dental: WNL Mouth Openin Fingerbreadth Neck Mobility: Normal Mallampati classification: II Thyromental Distance: 4-6 cm Respiratory: Lungs clear Cardiovascular: Regular rate Plan Anesthesia Type: General Consent for Procedure(s) Verified and Reviewed: Yes Code Status: Attempt Resuscitation ASA classification: 2-Mild systemic disease Is this case an emergency?: No
[2022-07-19] MEDS ORDERED: PROPOFOL 200 MG/20 ML VIAL IVP ONE (09:20)
[2022-07-19] MEDS ORDERED: LIDOCAINE-PF 2% 10 ML AMP SUBQ ONE (09:20)
[2022-07-19] MEDS ORDERED: MIDAZOLAM 2 MG/2 ML VIAL ONE (09:20)
[2022-07-19] MEDS ORDERED: KETOROLAC 30 MG/ML VIAL ONE (09:44)
[2022-07-19] MEDS ORDERED: DEXAMETHASONE 4 MG/ML VIAL ONE (09:44)
[2022-07-19] MEDS ORDERED: SILVER NITRATE APPLICATOR TOP ONE (10:00)
[2022-07-19] MEDS ORDERED: LACTATED RINGERS 1,000 ML IV SCH (10:00)
[2022-07-19] MEDS ORDERED: BUPIVACAINE 0.5% PF 10 ML VIAL SUBQ ONE ×2 (10:00)
[2022-07-19] MEDS ORDERED: LIDOCAINE 2%-EPI 1:100000 20 ML MDV SUBQ ONE ×2 (10:01)
[2022-07-19] MEDS ORDERED: HYDROcod/ACETAM 5/325 MG TABLET PO PRN (10:11)
--- NOTE | 2022-07-19 10:17 | OPERATIVE REPORT ---
Operative Report - General Procedure Date: 07/19/22 Planned Procedure: Hysteroscopy with dilation and curettage Pre-Op Diagnosis: Postmenopausal bleeding Procedure Performed: Hysteroscopy with dilation and curettage Post Op Diagnosis: Postmenopausal bleeding - Procedure Note Primary Surgeon: Patric Brown MD Anesthesia Provider: Nasreen Mullins CRNA Anesthesia Technique: General LMA Pathology: Endometrial curettings. IV Fluids (mL): 700 Estimated Blood Loss (mL): 5 Urine Output (mL): 30 Complications: None - Other Other Information/Narrative: Patient was consented for a hysteroscopy D&C with possible MyoSure. Prior to the procedure, she received 200 mcg of misoprostol PV the night before the procedure. We discussed the risk, benefits, alternatives of hysteroscopy D&C for postmenopausal bleeding. She declined office evaluation and desired to be put to sleep due to vaginal pain. Patient consented to surgical evaluation. Patient was taken to the procedure room and placed in dorsal lithotomy position. Hibiclens was used to clean the operative area. [place] speculum was palced in the vagina and the cervix was visualized. The anterior lip the cervix was grasped with a single-tooth tenaculum. The cervix was stenotic but allowed the easy passage of dilators. Hysteroscope was then used to hydrodilate using normal saline distention media. Hysteroscope was advanced without difficulty using hydrodistention. Cervical canal was noted to have no lesions. Upon entry into the internal cervical os there was noted to be atrophic without discrete lesions throughout the uterus. Bilateral tubal ostia were noted. Hysteroscope was then removed. A sharp curetting was then performed feeling uterine lining and a small amount of uterine contents was collected on a Telfa and sent to pathology. Tenaculum was then removed from the cervix noted to be hemostatic. All instruments removed from the vagina. Patient was taken to the PACU in stable condition. Fluid deficit 125.
[2022-07-19 11:24] VITALS: BP 130/85
--- NOTE | 2022-07-20 08:06 | ANESTHESIA POST OP EVALUATION ---
Anesthesia Post Eval - Post Anesthesia Eval Vitals: Last Vital Signs Temp 36.6 C 07/19/22 11:23 Pulse 55 L 07/19/22 11:23 Resp 16 07/19/22 11:23 BP 130/85 H 07/19/22 11:23 Pulse Ox 99 07/19/22 11:23 O2 Flow Rate CV Function Including HR & BP: Stable Pain Control: Satisfactory Nausea & Vomiting: Negative Mental Status: Baseline Respiratory Status: Airway Patent Hydration Status: Satisfactory Anesthesia Complications: None
== END 2022-07-19 08:44 | disposition home or self-care (01) ==
LOC: SDS 08:43
PROVIDERS: ATTEND Obstetrics & Gynecology
PROC: 0UDB8ZZ Extraction of Endometrium, Via Natural or Artificial Opening Endoscopic (ICD-10-PCS; principal; 2022-07-19 10:15)
DX: N95.0 Postmenopausal bleeding (principal); G47.33 Obstructive sleep apnea (adult) (pediatric)
CPT/HCPCS: 58558; J7120

== ENCOUNTER 2023-03-20 17:21 | Outpatient (CLI) | payer OTHER ==
--- NOTE | 2023-03-21 12:37 | XRAY Report ---
PROCEDURE: Knee 3 View LT INDICATIONS: SPRAIN OF MEDIAL COLLATERAL LIGAMENT OF LEFT KNEE TECHNIQUE: 3 views of the knee(s) were acquired. COMPARISON: Knee x-ray right 05/18/2022 FINDINGS: Bones: No fractures or dislocations. Tricompartmental osteoarthritic changes of the knee with vibha nal spurring and moderate medial joint space narrowing. No suspicious bony lesions. Soft tissues: No knee joint effusion. No suspicious soft tissue calcifications or masses. IMPRESSION: No acute bony abnormality. Mild osteoarthritic changes. Reviewed by: Issac Shah MD on 03/21/2023 12:35 PM PST Approved by: Issac Shah MD on 03/21/2023 12:35 PM PST Station ID: [id number]
== END 2023-03-20 17:22 | disposition home or self-care (01) ==
LOC: DI.S 17:21
PROVIDERS: ATTEND Registered Nurse
DX: M17.12 Unilateral primary osteoarthritis, left knee (principal); S83.412D Sprain of medial collateral ligament of left knee, subsequent encounter

== ENCOUNTER 2023-12-20 07:51 | Outpatient (CLI) | payer OTHER ==
--- NOTE | 2023-12-21 07:55 | Mammography Report ---
BILATERAL DIGITAL SCREENING MAMMOGRAM 3D/2D: 12/20/2023 CLINICAL: Routine screening. Family history of breast cancer. Comparison is made to exams dated: 12/13/2021 mammogram, 12/14/2020 mammogram, and 12/21/2022 mammogram - [facility]. Both breasts are heterogeneously dense, which may obscure small masses (category c / 51-75% glandular tissue). There is a biopsy clip in the left breast. No significant masses, calcifications, or other findings are seen in either breast. There has been no significant interval change. IMPRESSION: NEGATIVE There is no mammographic evidence of malignancy. A 1 year screening mammogram is recommended. Based on the Tyrer Cuzick model (a risk assessment model) the patient's lifetime risk is 18.9% and he r 10 year risk is 8.8%. According to the ACR, ACS, and NCCN guidelines, an annual breast MRI exam nicole ng with mammogram is recommended if the patient's lifetime risk is 20% or greater. This exam was interpreted at Station ID: [id number]. NOTE: For mammograms, a report in lay terms will be sent to the patient. Approximately 15% of breast malignancies will not be visualized mammographically. In the management of a palpable breast mass, a negative mammogram must not discourage biopsy of a clinically suspicious lesion. Electronically Signed By: Domingo bravo/сергей:12/20/2023 12:32:25 letter sent: No_Letter ACR BI-RADS Category 1: Negative 3341F PARENCHYMAL PATTERN: (D) - The breast(s) demonstrate(s) heterogeneously dense fibroglandular chandana mccloud. BI-RADS CATEGORY: (1) - 1 RECOMMENDATION: (ANNUAL) - Recommend routine annual screening mammography. [id number] 1 year screening LATERALITY: (B)
== END 2023-12-20 07:52 | disposition home or self-care (01) ==
LOC: DI.S 07:51
DX: Z12.31 Encounter for screening mammogram for malignant neoplasm of breast (principal); R92.333 Mammographic heterogeneous density, bilateral breasts; Z80.3 Family history of malignant neoplasm of breast